=== PATIENT | female | born 1995 | race Hispanic/Latino ===

== ENCOUNTER → 2018-02-19 | Outpatient (CLI) | payer OTHER | LOC: M RAD 13:44 | DX: O34.211 Maternal care for low transverse scar from previous cesarean delivery (principal); Z3A.17 17 weeks gestation of pregnancy | CPT/HCPCS: 76811 ==

== ENCOUNTER → 2018-02-20 | Outpatient (CLI) | payer OTHER ==
[2018-02-20 10:39] LABS: BASO % 0.2 % (0.0-1.0); EOS # 0.1 10^3/uL (0.0-0.50); HEMATOCRIT 39.1 % (36.0-47.0); HEMOGLOBIN 13.3 g/dl (12.0-15.5); IMMATURE GRANULOCYTE % 0.5 % (0-3.0); LYMPH # 1.8 10^3/uL (1.5-6.5); LYMPH % 20.7 % (24.0-44.0); MEAN CORPUSCULAR HEMOGLOBIN 29.5 pg (27.0-33.0); MEAN CORPUSCULAR VOLUME 86.7 fl (80.0-96.0); MONO # 0.4 10^3/uL (0.0-0.8); MONO % 4.6 % (0.0-5.0); NEUTROPHILS # 6.5 10^3/uL (1.8-7.7); PLATELET COUNT, AUTOMATED 242 10^3/uL (150-450); RED BLOOD COUNT 4.51 10^6/uL (4.00-5.40); RED CELL DISTRIBUTION WIDTH 13.9 % (11.5-14.5); WHITE BLOOD COUNT 8.8 10^3/uL (4.0-10.0)
[2018-02-20 10:56] LABS: GLUCOSE CHALLENGE TEST 1 HOUR 171 MG/DL (LESS THAN 140)
[2018-02-20 10:57] LABS: ESTIMATED AVERAGE GLUCOSE 97 MG/DL (60-110)
[2018-02-20 12:47] LABS: CHLAMYDIA DNA AMPLIFICATION NEGATIVE (NEGATIVE); GC DNA AMPLIFICATION NEGATIVE (NEGATIVE)
[2018-02-22 12:49] LABS: RUBELLA IgG QUALITATIVE IMMUNE (IMMUNE)
[2018-02-22 12:53] LABS: HEPATITIS B SURFACE ANTIGEN NEGATIVE (NEGATIVE)
[2018-02-22 14:08] LABS: HEPATITIS C VIRUS ABY INDEX 0.1 INDEX (<0.8)
[2018-02-22 14:08] LABS: HIV 1&2 SCREEN CENTAUR NEGATIVE (NEGATIVE)
== END ==
LOC: M LAB 08:56
DX: Z34.81 Encounter for supervision of other normal pregnancy, first trimester (principal); Z3A.13 13 weeks gestation of pregnancy
CPT/HCPCS: 82950

== ENCOUNTER → 2019-01-02 | Outpatient (REF) | payer OTHER | LOC: M SFHCLERA 12:05 | PROVIDERS: ATTEND Physician Assistant | DX: R50.9 Fever, unspecified (principal) ==